=== PATIENT | female | born 1955 | race Caucasian/White ===

== ENCOUNTER → 2021-12-01 08:19 | Outpatient (REF) | payer MEDICARE, OTHER, SELFPAY ==
--- NOTE | 2021-12-01 08:30 | CA_ITS ---
Transthoracic Echocardiogram Patient (Last, First, Middle): Rebeca Cormier, Gender: Female Date of : 1955 Age: 66 Procedure Date: 12/01/2021 Procedure Type: Transthoracic Echocardiogram Location: [facility] Height: 160.02 cm Weight: 54.43 kg BSA: 1.56 m2 Heart Rate: bpm BP: 126 / 74 mmHg Intercell Connector Placer: STAS Referring MD: Josefa Bradshaw MD Symptoms: SOB Study Quality: Fair ECG Rhythm: Sinus Conclusions: - The left ventricular systolic function is normal. The calculated ejection fraction is 66% by biplane method. - There is mild tricuspid valve regurgitation. - The pulmonary artery systolic pressure is normal. - There is no evidence of pericardial effusion. Findings Left Ventricle Normal left ventricular cavity size. There is normal left ventricular wall thickness. The left ventricular systolic function is normal. The calculated ejection fraction is 66% by biplane method. There is no evidence of regional wall motion abnormalities. Diastolic function is normal for age. Right Ventricle Normal right ventricular cavity size and systolic function. Atria Both atria are normal in size. Aortic Valve There is a normal trileaflet aortic valve. There is no aortic valve stenosis. There is no aortic valve regurgitation. Mitral Valve The mitral valve appears normal. There is trace mitral valve regurgitation. There is no mitral valve stenosis. Pulmonic Valve The pulmonic valve is likely normal. Tricuspid Valve Normal tricuspid valve structure. There is mild tricuspid valve regurgitation. The pulmonary artery systolic pressure is normal. Great Vessels The sinuses of valsalva, sino tubular ridge, and asc aorta are normal in size. Venous The inferior vena cava is normal in size and collapses greater than 50% with inspiration. Pericardium/Pleural There is no evidence of pericardial effusion. Prior Study Comparison No prior study available for comparison. Measurements 2D Linear Measurements IVSd: 0.82 0.6-0.9/0.6-1.0 cm LVIDd: 4.32 3.9-5.3/4.2-5.9 cm LVIDd Index: 2.77 2.4-3.2/2.2-3.1 cm/m2 LVIDs: 2.26 2.0-3.6 cm LVPWd: 0.74 0.7-1.1 cm LA Diam: 2.70 2.7-3.8/3.0-4.0 cm LAIDs Index: 1.73 1.5-2.3 cm/m2 LV Mass: 127.69 67-162/88-224 g LV Mass Index: 81.85 43-95/49-115 g/m2 LVOT Diam: 1.70 3.0+(-)1.3 cm 2D Systolic Function EF 4C: 64.00 >55% EF 2C: 67.20 >55% EF BiP: 65.60 >55% Mitral Valve MV Pk E: 0.54 MV PK A: 0.61 MV Decel Time: 248.00 E/A: 0.90 E'Lateral: 6.53 E'Medial: 4.79 E/E' Med: 11.30 E/E' Lat: 8.30 PHT: 73.00 MVA PHT: 3.01 Decel Bowman: 2.17 Aortic Valve AoV Pk Berto: 1.05 AoV Mn Berto: 0.72 AoV VTI: 0.27 AoV Pk Grad: 4.00 Aov Mn Grad: 2.00 TABBY Cont.VTI: 1.83 LVOT LVOT Pk Berto: 0.84 LVOT Mn Berto: 0.59 LVOT VTI: 0.22 LVOT Pk Grad: 3.00 LVOT Mn Grad: 2.00 LVOT Diam: 1.70 LVOT Area: 2.27 Diastolic Function MV Pk E: 0.54 MV Pk A: 0.61 E/A: 0.90 E'Medial: 4.79 E/E' Med: 11.30 E' Laterial: 6.53 E/E' Lat: 8.30 Right Ventricle TAPSE (mm): 22.60 TVS' Berto: 9.68 Tricuspid Valve TR Pk Berto: 2.14 TR Pk Grad: 18.00 RA Press: 3.00 RVSP: 21.00 Great Vessels Aorta Sinus of Valsalva: 2.91 2.0-3.[address] Ridge: 2.69 1.7-3.4 cm Ao Asc: 2.60 2.1-3.4 cm Ao Arch: 2.70 Updated in Other Vendor System with Status of Final Clemente Munguia MD electronically signed on 12/02/2021 1:06:19 PM with status of Final
== END ==
LOC: HO.CARD 08:19
PROVIDERS: Visit Provider Internal Medicine Pulmonary Disease
DX: R06.02 Shortness of breath (principal)
CPT/HCPCS: 93306